=== PATIENT | female | born 1995 | race Caucasian/White ===

== ENCOUNTER → 2024-06-28 14:56 | Outpatient (REF) | payer BC, SELFPAY | LOC: REG 14:56 | PROVIDERS: ATTENDING PHYSICIAN Obstetrics & Gynecology; FAMILY PHYSICIAN Family Medicine | DX: O26.851 Spotting complicating pregnancy, first trimester (principal) | CPT/HCPCS: 36415; 86850; 86900; 86901; J2790 ==

== ENCOUNTER → 2024-08-17 14:52 | Outpatient (REF) | payer BC, SELFPAY | LOC: PNTC 14:52 | PROVIDERS: ATTENDING PHYSICIAN Obstetrics & Gynecology | DX: I82.409 Acute embolism and thrombosis of unspecified deep veins of unspecified lower extremity (principal); Z34.82 Encounter for supervision of other normal pregnancy, second trimester | CPT/HCPCS: 76805 ==

== ENCOUNTER → 2024-11-08 16:38 | Outpatient (REF) | payer BC, SELFPAY | LOC: PNTC 16:38 | PROVIDERS: ATTENDING PHYSICIAN Obstetrics & Gynecology | DX: Z31.82 Encounter for Rh incompatibility status (principal) | CPT/HCPCS: 36415; 86850; 86900; 86901; J2790 ==

== ENCOUNTER 2025-01-19 05:06 | Observation (INO) | payer BC, SELFPAY ==
[2025-01-19 05:23] VITALS: BP 114/79; BMI 32.5
== END 2025-01-19 09:44 | disposition home or self-care (01) ==
LOC: LDRP 05:06
PROVIDERS: ADMITTING PHYSICIAN Obstetrics & Gynecology; FAMILY PHYSICIAN Family Medicine
DX: O46.93 Antepartum hemorrhage, unspecified, third trimester (principal); Z3A.38 38 weeks gestation of pregnancy; Z88.2 Allergy status to sulfonamides; Z28.39 Other underimmunization status; Z86.718 Personal history of other venous thrombosis and embolism; Z79.01 Long term (current) use of anticoagulants
CPT/HCPCS: 59899; G0378

== ENCOUNTER 2025-01-20 01:26 | Inpatient (IN) | payer BC, SELFPAY ==
[2025-01-20 01:41] VITALS: BMI 32.5
[2025-01-20 01:42] VITALS: BP 111/71
[2025-01-20 02:56] LABS: % Basophils 0.4 % (0-2); % Eosinophils 1.2 % (0-6); % Immature Granulocytes 1.1 % (0-0.5); % Lymphocytes 21.2 % (20.5-51.1); % Monocytes 8.1 % (1.7-9.3); Absolute Eosinophils 0.1 10^3/uL (0-0.7); Absolute Immature Granulocytes 0.1 10^3/uL (0-0.05); Absolute Lymphocytes 2.2 10^3/uL (1.2-3.4); Absolute Monocytes 0.8 10^3/uL (0.1-0.6); Absolute Neutrophils 7.1 10^3/uL (1.4-6.5); Hematocrit 35.5 % (37.0-47.0); Hemoglobin 12.3 g/dL (12.0-16.0); Mean Corp Hgb Conc. 34.6 g/dL (33.0-37.0); Mean Corpuscular Hgb 33.8 pg (27.0-31.0); Mean Corpuscular Volume 97.5 fL (81.0-99.0); Mean Platelet Volume 10.6 fL (7.4-10.4); Nucleated Red Blood Cells % 0 %; Platelet Count 192 10^3/uL (130-400); Red Blood Cell Count 3.64 10^6/uL (4.20-5.40); Red Cell Dist. Width 12.9 % (11.5-14.5); White Blood Cell Count 10.4 10^3/uL (4.8-10.8)
[2025-01-20 03:05] LABS: INR 0.95; PT 12.9 Sec (11.4-14.6)
[2025-01-20 06:47] LABS: APTT 75.6 Sec (23.4-35.0)
[2025-01-20 13:32] LABS: APTT 32.1 Sec (23.4-35.0)
[2025-01-20] MEDS: FENTANYL/BUPIVACAINE 100 EPIDURAL (15:28)
[2025-01-20] MEDS: SUBLIMAZE 100 MCG EPIDURAL (15:28)
[2025-01-20] MEDS: LR 1000 IV (19:49)
[2025-01-20] MEDS: PITOCIN 30 UNITS/NSS 500 ML IV (19:49)
[2025-01-20] MEDS: TYLENOL 1000 MG PO (21:44)
[2025-01-20] MEDS: ANCEF 10 IV (21:45)
[2025-01-20] MEDS: BICITRA 30 ML PO (21:45)
[2025-01-20] MEDS: ZITHROMAX INFUSION 250 IV (21:47)
[2025-01-21] MEDS: MORPHINE SULFATE 4 MG IV (00:47)
[2025-01-21] MEDS: MORPHINE SULFATE 2 MG IV (05:21)
[2025-01-21 05:22] LABS: Hematocrit 34.2 % (37.0-47.0); Hemoglobin 11.9 g/dL (12.0-16.0); Mean Corp Hgb Conc. 34.8 g/dL (33.0-37.0); Mean Corpuscular Hgb 34.2 pg (27.0-31.0); Mean Corpuscular Volume 98.3 fL (81.0-99.0); Mean Platelet Volume 10.5 fL (7.4-10.4); Platelet Count 161 10^3/uL (130-400); Red Blood Cell Count 3.48 10^6/uL (4.20-5.40); Red Cell Dist. Width 12.9 % (11.5-14.5); White Blood Cell Count 14.4 10^3/uL (4.8-10.8)
[2025-01-21] MEDS: PRENATAL PLUS 1 TABLET PO (08:25)
[2025-01-21] MEDS: MOTRIN 600 MG PO (09:12)
[2025-01-21] MEDS: RHOGAM 300 MCG IM (13:47)
[2025-01-21] MEDS: PERCOCET 5/325 1 TABLET PO (15:46)
[2025-01-21] MEDS: SENOKOT-S 1 TABLET PO (15:53)
[2025-01-21] MEDS: MYLICON 80 MG PO (19:41)
[2025-01-21] MEDS: LOVENOX 80 MG SC (19:41)
[2025-01-22] MEDS: PERCOCET 5/325 1 TABLET PO ×3 (01:37→22:30)
[2025-01-22] MEDS: MYLICON 80 MG PO ×2 (06:51→12:40)
--- NOTE | 2025-01-22 07:14 | W.PN.ANS.POP ---
Anesthesia Post Operative
- Anesthesia Post Op Note
Vital Signs Stable-See Nursing Note: Yes
Airway Patent: Yes
Adequate Pain Control: Yes
Change in Mental Status: No
Current Postoperative Nausea & Vomiting: No
Anesthesia Complications: No
General Anesthetic Recall: No
Unplanned Admission: No
Post Op Hydration Adequate: Yes
[2025-01-22] MEDS: PRENATAL PLUS 1 TABLET PO (08:04)
[2025-01-22] MEDS: MYLICON PO (08:04)
[2025-01-22] MEDS: SENOKOT-S 1 TABLET PO (08:04)
[2025-01-22] MEDS: LOVENOX 80 MG SC ×2 (08:04→19:42)
[2025-01-22 13:23] LABS: Syphilis/T. pallidum Ab Reflex Negative (Negative)
[2025-01-23] MEDS: LOVENOX 80 MG SC (08:28)
[2025-01-23] MEDS: SENOKOT-S 1 TABLET PO (08:29)
[2025-01-23] MEDS: MYLICON 80 MG PO (08:29)
[2025-01-23] MEDS: PRENATAL PLUS 1 TABLET PO (08:29)
[2025-01-23] MEDS: TYLENOL 650 MG PO (08:29)
--- NOTE | 2025-01-23 10:45 | W.DS.TRANS ---
DC Summary - Gauger Chief Delivery
-
Discharge Instructions:
Discharge Diagnosis/Procedures 38w4d delivered by Primary low
transverse csection, BMI 32, labor, epidural
amniotomy, pitocin augmentation, primary low
transverse csection, history of DVT on
anticoagulation prophylaxis
Diet Regular
Activity No strenuous activity
Driving Restrictions No driving for 2 weeks
Bathing Restrictions OK to Shower
Instructions:
Stand-Alone Forms: LDRP Delivery
Changes to Home Medications: No
Discharge Medications:
DC Medications w/original date entered in [facility]
1 tab PO DAILY 01/19/25
vit [id number] 1,000 mg PO DAILY 01/19/25
enoxaparin 80 mg/0.8 mL subcutaneous syringe (Lovenox) 80 mg (0.8 mL) SC Q12H 6 weeks #67.2 mL 01/21/25
oxycodone-acetaminophen 5 mg-325 mg tablet 1 tab PO Q4HPRN PRN moderate pain #12 tabs 01/23/25
Home Medication Changes
Pending Results: Yes
Additional Pending Results:
placenta
Total time spent discharging patient (in min): 20
== END 2025-01-23 12:00 | disposition home or self-care (01) | DRG 788 ==
LOC: LDRP 01:26
PROVIDERS: Obstetrics & Gynecology; ADMITTING PHYSICIAN Obstetrics & Gynecology
PROC: 10D00Z1 Extraction of Products of Conception, Low, Open Approach (ICD-10-PCS; 2025-01-20)
PROC: 3E0234Z Introduction of Serum, Toxoid and Vaccine into Muscle, Percutaneous Approach (ICD-10-PCS; 2025-01-21)
DX: O69.81X0 Labor and delivery complicated by cord around neck, without compression, not applicable or unspecified (principal); O62.1 Secondary uterine inertia; Z3A.38 38 weeks gestation of pregnancy; Z37.0 Single live birth
CPT/HCPCS: 85025; 85027; 85461; 85610; 85730; 86780; 86850; 86900; 86901; J2790